=== PATIENT | female | born 1980 | race African-American/Black ===

== ENCOUNTER 2017-01-02 11:24 | Emergency (ER) | payer OTHER ==
[2017-01-02 11:34] VITALS: BP 118/67; PULSE 62; TEMP 98.6; BMI 38.4
[2017-01-02] MEDS ORDERED: IBUPROFEN 600 MG TABLET (FP) PO ONE ×2 (12:25→12:28)
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
== END 2017-01-02 13:14 | disposition home or self-care (01) ==
LOC: JERFT 11:24
PROC: 2W39X1Z Immobilization of Left Upper Extremity using Splint (ICD-10-PCS; principal; 2017-01-02)
DX: S52.125A Nondisplaced fracture of head of left radius, initial encounter for closed fracture (principal); Y04.2XXA Assault by strike against or bumped into by another person, initial encounter; Y93.89 Activity, other specified; Y92.038 Other place in apartment as the place of occurrence of the external cause; Y07.01 Husband, perpetrator of maltreatment and neglect
CPT/HCPCS: 29105; 73070-TC-LT; 99281-25

== ENCOUNTER 2018-11-09 09:47 | Emergency (ER) | payer OTHER ==
[2018-11-09 10:04] VITALS: BP 132/64; PULSE 56; TEMP 97.5; BMI 31.1
[2018-11-09 10:45] LABS: BASO % 0.2 % (0-2.0); EOS % 3.3 % (0-4.5); HEMOGLOBIN 13.6 GM/dL (10.7-15.3); LYMPH % 19.6 % (8-40); MCH 29.2 pg (25.7-33.7); MEAN CELL VOLUME 86.1 fl (80-96); MEAN PLT VOLUME 8.8 fl (7.5-11.1); MONO % 4.8 % (3.8-10.2); NEUT % 72.1 % (42.8-82.8); PLATELET COUNT 242 K/MM3 (134-434); RBC 4.64 M/mm3 (3.60-5.2); RDW 13.3 % (11.6-15.6); WHITE BLOOD COUNT 7.6 K/mm3 (4.0-10.0)
--- NOTE | 2018-11-09 10:57 | PDOC ---
History of Present Illness - General Chief Complaint: Pain Stated Complaint: STOMACH PAIN Time Seen by Provider: 11/09/18 10:21 - History of Present Illness Initial Comments: 11/09/18 11:15 I advised the patient to change from street clothing into a gown. I was then informed by the nurse patient insisted that her IV be removed and she eloped prior to evaluation. Past History - Past Medical History Allergies/Adverse Reactions: Allergies Allergy/AdvReac Type Severity Reaction Status Date / Time No Known Allergies Allergy Verified 11/09/18 10:04 Home Medications: Ambulatory Orders No Home Medications 0 dose .ROUTE UTDICT 01/12/14 Asthma: No Cancer: No Cardiac Disorders: No COPD: No Diabetes: No HTN: No Seizures: No Thyroid Disease: No - Family Disease History Family Disease History: Heart Disease: Father (htn) - Reproductive History (#): 11 Para: 2 Spontaneous : 9 - Immunization History Immunization Up to Date: Yes - Suicide/Smoking/Psychosocial Hx Smoking Status: No Smoking History: Current every day smoker Have you smoked in the past 12 months: Yes Number of Cigarettes Smoked Daily: 6 Information on smoking cessation initiated: Yes 'Breaking Loose' booklet given: 01/02/17 Hx Alcohol Use: No Drug/Substance Use Hx: No Substance Use Type: None Hx Substance Use Treatment: No *Physical Exam - Vital Signs Last Vital Signs Temp Pulse Resp BP Pulse Ox 97.5 F L 56 L 18 132/64 100 11/09/18 10:01 11/09/18 10:01 11/09/18 10:01 11/09/18 10:01 11/09/18 10:01 Moderate Sedation - Procedure Monitoring Vital Signs: Procedure Monitoring Vital Signs Temperature 97.5 F L 11/09/18 10:01 Pulse Rate 56 L 11/09/18 10:01 Respiratory Rate 18 11/09/18 10:01 Blood Pressure 132/64 11/09/18 10:01 O2 Sat by Pulse Oximetry (%) 100 11/09/18 10:01 ED Treatment Course - LABORATORY CBC & Chemistry Diagram: 11/09/18 10:30 11/09/18 10:30 - ADDITIONAL ORDERS Additional order review: 11/09/18 10:30 RBC 4.64 MCV 86.1 MCHC 34.0 RDW 13.3 MPV 8.8 Neutrophils % 72.1 Lymphocytes % 19.6 D Monocytes % 4.8 Eosinophils % 3.3 D Basophils % 0.2 *DC/Admit/Observation/Transfer Diagnosis at time of Disposition: Abdominal pain - Discharge Dispostion Disposition: ELOPED - Referrals Referrals: Akiko Meade [Primary Care Provider] - - Patient Instructions - Post Discharge Activity
[2018-11-09 11:07] LABS: ALK PHOS 80 U/L (45-117); ANION GAP 3 MMOL/L (8-16); BILIRUBIN,TOTAL 0.2 mg/dL (0.2-1); BLOOD UREA NITROGEN 10 mg/dL (7-18); CALCIUM 8.1 mg/dL (8.5-10.1); CHLORIDE 108 mmol/L (98-107); CO2 29 mmol/L (21-32); CREATININE 0.4 mg/dL (0.55-1.3); GLUCOSE,RANDOM 100 mg/dL (74-106); LIPASE 65 U/L (73-393); SGOT/AST 15 U/L (15-37); SGPT/ALT 16 U/L (13-61); SODIUM 140 mmol/L (136-145); TOT PROT 6.1 g/dl (6.4-8.2)
== END 2018-11-09 11:07 | disposition home or self-care (01) ==
LOC: JER 09:47
DX: R10.9 Unspecified abdominal pain (principal)
CPT/HCPCS: 36415; 80053; 83690; 85025; 99282-25

== ENCOUNTER 2019-08-04 14:39 | Emergency (ER) | payer OTHER ==
[2019-08-04 14:48] VITALS: BP 118/78; PULSE 82; TEMP 99; BMI 31.8
[2019-08-04] MEDS ORDERED: IBUPROFEN 600 MG TABLET (FP) PO ONE ×2 (14:48→15:49)
--- NOTE | 2019-08-04 14:48 | PDOC ---
Rapid Medical Evaluation Medical Evaluation: Allergies Allergy/AdvReac Type Severity Reaction Status Date / Time No Known Allergies Allergy Verified 08/04/19 14:44 I have performed a brief in-person evaluation of this patient. The patient presents with a chief complaint of: c/o sore throat x2 days, c/o chills, subjective fever; saw PCP yesterday who gave her shot of Rocephin ( patient states she is unable to take pills because of sensitive stomach) Pertinent physical exam findings: +pharygneal erythema, no significant tonsillar swelling or exudates noted, uvula midline I have ordered the following: rapid strep, motrin The patient will proceed to the ED for further evaluation. 08/04/19 14:44
[2019-08-04] MEDS ORDERED: DEXAMETHASONE LIQUID 0.5 MG/5 ML PO ONE (15:47)
[2019-08-04] MEDS ORDERED: DEXAMETHASONE SOD PHOSPHATE 10 MG/1 ML VIAL ONE (15:49)
--- NOTE | 2019-08-04 16:03 | PDOC ---
History of Present Illness - General Chief Complaint: Sore Throat Stated Complaint: SORE THROAT Time Seen by Provider: 08/04/19 14:44 History Source: Patient Exam Limitations: Clinical Condition - History of Present Illness Initial Comments: 08/04/19 16:33 Patient with no significant past medical history present with complaint of 4- day history of sore throat, painful to swallow, body aches and chills. Patient reports seeing her PCP yesterday who treated her with IM ceftriaxone for sore throat but was not tested. Denies fevers, nausea, vomiting. Denies recent travel or sick contact. Patient has not taken anything for symptoms Is this a multiple visit Asthma Patient?: No Timing/Duration: other (2 days) Past History - Past Medical History Allergies/Adverse Reactions: Allergies Allergy/AdvReac Type Severity Reaction Status Date / Time No Known Allergies Allergy Verified 08/04/19 14:44 Home Medications: Ambulatory Orders No Home Medications 0 dose .ROUTE UTDICT 01/12/14 Methylprednisolone [Medrol Dose Matt] 4 mg PO ASDIR #21 tablet 08/04/19 Oseltamivir Phosphate [Tamiflu -] 75 mg PO BID #10 capsule 08/04/19 Asthma: No Cancer: No Cardiac Disorders: No COPD: No Diabetes: No HTN: No Seizures: No Thyroid Disease: No - Reproductive History (#): 11 Para: 2 Spontaneous : 9 - Immunization History Immunization Up to Date: Yes - Psycho Social/Smoking Cessation Hx Smoking Status: No Smoking History: Current every day smoker Have you smoked in the past 12 months: Yes Number of Cigarettes Smoked Daily: 5 Information on smoking cessation initiated: Yes 'Breaking Loose' booklet given: 01/02/17 Hx Alcohol Use: No Drug/Substance Use Hx: No Substance Use Type: None Hx Substance Use Treatment: No Review of Systems - Review of Systems Able to Perform ROS?: Yes Is the patient limited Chinese proficient: No Constitutional: Yes: Chills, Malaise. No: Fever HEENTM: Yes: Symptoms Reported, See HPI, Nose Congestion, Throat Pain, Difficulty Swallowing. No: Eye Pain, Blurred Vision, Tearing, Recent change in vision, Double Vision, Cataracts, Ear Pain, Ocular Prothesis, Ear Discharge, Nose Pain, Tinnitus, Nose Bleeding, Hearing Loss, Throat Swelling, Mouth Pain, Dental Problems, Mouth Swelling, Other Respiratory: No: Symptoms reported, See HPI, Cough, Orthopnea, Shortness of Breath, SOB with Exertion, SOB at Rest, Stridor, Wheezing, Productive cough, Hemoptysis, Other Cardiac (ROS): No: Symptoms Reported, See HPI, Chest Pain, Edema, Irregular Heart Rate, Lightheadedness, Palpitations, Syncope, Chest Tightness, Other ABD/GI: No: Symptoms Reported, Nausea, Vomiting Musculoskeletal: No: Symptoms Reported Integumentary: No: Symptoms Reported Neurological: No: Symptoms reported All Other Systems: Reviewed and Negative *Physical Exam - Vital Signs Last Vital Signs Temp Pulse Resp BP Pulse Ox 99 F 82 18 118/78 100 08/04/19 14:44 08/04/19 14:44 08/04/19 14:44 08/04/19 14:44 08/04/19 14:44 - Physical Exam Comments: 08/04/19 16:02 GENERAL: Well developed, well nourished. Awake and alert. No acute distress. HEENT: Moderate pharyngeal erythema. Oropharynx patent. .normocephalic, atraumatic. PERRLA, EOMI. No conjunctival pallor. Sclera are non-icteric. Moist mucous membranes. NECK: Supple. Full ROM. CARDIOVASCULAR: Regular rate and rhythm. No murmurs, rubs, or gallops. Distal pulses are 2+ and symmetric. PULMONARY: No evidence of respiratory distress. Lungs clear to auscultation bilaterally. No wheezing, rales or rhonchi. ABDOMINAL: Soft. Non-tender. Non-distended. No rebound or guarding. No organomegaly. Normoactive bowel sounds. MUSCULOSKELETAL Normal range of motion at all joints. SKIN: Warm and dry. Normal capillary refill. No rashes. NEUROLOGICAL: Alert, awake, appropriate. Gait is normal without ataxia. PSYCHIATRIC: Cooperative. Good eye contact. Appropriate mood General Appearance: Yes: Nourished, Appropriately Dressed. No: Apparent Distress ED Treatment Course - Medications Given in the ED: ED Medications Discontinued Medications Generic Name Dose Route Start Last Admin Trade Name Freq PRN Reason Stop Dose Admin Dexamethasone 10 mg 08/04/19 15:47 08/04/19 15:53 Decadron Liquid - PO 08/04/19 15:48 10 mg ONCE ONE Administration Ibuprofen 600 mg 08/04/19 14:48 08/04/19 15:53 Motrin - PO 08/04/19 14:49 600 mg ONCE ONE Administration Medical Decision Making - Medical Decision Making 08/04/19 16:34 Patient with no significant past medical history present with complaint of 4- day history of sore throat, painful to swallow, body aches and chills. Patient reports seeing her PCP yesterday who treated her with IM ceftriaxone for sore throat but was not tested. Denies fevers, nausea, vomiting. Denies recent travel or sick contact. Patient has not taken anything for symptoms Clinical exam unremarkable except moderate pharyngeal erythema. Patient afebrile now. Rapid strep negative and rapid flu negative. Patient symptoms likely viral syndrome. Patient stable for discharge on Tamiflu for viral infection with Medrol Matt for malaise with PCP follow-up. Patient advised to increase fluid intake and take Motrin alternate with Tylenol as needed for Tylenol. Patient stable for discharge Discharge - Discharge Information Problems reviewed: Yes Clinical Impression/Diagnosis: Viral syndrome, Malaise Pharyngitis Qualifiers: Pharyngitis/tonsillitis etiology: unspecified etiology Qualified Code(s): J02.9 - Acute pharyngitis, unspecified Condition: Stable Disposition: HOME - Admission No - Additional Discharge Information Prescriptions: Methylprednisolone [Medrol Dose Matt] 4 mg PO ASDIR #21 tablet Oseltamivir Phosphate [Tamiflu -] 75 mg PO BID #10 capsule - Follow up/Referral Referrals: Richardson Perry [Primary Care Provider] - - Patient Discharge Instructions Patient Printed Discharge Instructions: DI for Viral Syndrome Additional Instructions: Your strep test and flu test was negative. Symptoms likely caused by viral infection. Take prescribed medication as prescribed. Increase fluid intake. Follow-up with primary care as needed - Post Discharge Activity Work/Back to School Note: Back to Work
== END 2019-08-04 16:44 | disposition home or self-care (01) ==
LOC: JERFT 14:39
DX: J02.9 Acute pharyngitis, unspecified (principal); B34.9 Viral infection, unspecified; F17.210 Nicotine dependence, cigarettes, uncomplicated
CPT/HCPCS: 87070; 87804; 87880; 99281-25

== ENCOUNTER 2022-07-02 08:58 | Emergency (ER) | payer OTHER ==
[2022-07-02 09:14] VITALS: BP 97/69; PULSE 96; RESP 18; TEMP 98.9; BMI 37.8
[2022-07-02] MEDS ORDERED: KETOROLAC TROMETHAMINE 30 MG/1 ML VIAL IVPB ONE (09:53)
[2022-07-02] MEDS ORDERED: ONDANSETRON 4 MG/2 ML VIAL IVPUSH ONE (09:53)
[2022-07-02] MEDS ORDERED: SODIUM CHLORIDE 0.9% 500 ML INFUS.BAG IV ONE ×2 (09:53→13:23)
[2022-07-02] MEDS ORDERED: KETOROLAC TROMETHAMINE 30 MG/1 ML VIAL ONE (10:45)
[2022-07-02] MEDS ORDERED: ONDANSETRON 4 MG/2 ML VIAL ONE (10:45)
[2022-07-02 11:24] LABS: BASO % 0.5 % (0-2.0); HEMATOCRIT 45.5 % (32.4-45.2); HEMOGLOBIN 15.2 GM/dL (10.7-15.3); LYMPH % 17.5 % (8-40); MCH 28.5 pg (25.7-33.7); MCHC 33.5 g/dl (32.0-36.0); MEAN CELL VOLUME 85.3 fl (80-96); MONO % 12.7 % (3.8-10.2); NEUT % 69.3 % (42.8-82.8); PLATELET COUNT 145 10^3/uL (134-434); RBC 5.33 M/mm3 (3.60-5.2); RDW 13.9 % (11.6-15.6); WHITE BLOOD COUNT 2.2 K/mm3 (4.0-10.0)
[2022-07-02 11:50] LABS: BILIRUBIN,TOTAL 0.2 mg/dL (0.2-1); TOT PROT 6.7 g/dl (6.4-8.2)
[2022-07-02 12:49] LABS: CREATININE 0.5 mg/dL (0.55-1.3)
[2022-07-02 12:50] LABS: CALCIUM 8.3 mg/dL (8.5-10.1)
[2022-07-02 12:51] LABS: ALBUMIN 3.2 g/dl (3.4-5.0); BLOOD UREA NITROGEN 8.6 mg/dL (7-18)
[2022-07-02 14:03] LABS: EPI CELLS 17 /uL (0-25.1); HYALINE CASTS 1 /uL (0-3.1); URINE APPEARANCE CLEAR; URINE BACTERIA 185 /uL (0-1359); URINE BILIRUBIN NEGATIVE (NEGATIVE); URINE COLOR YELLOW; URINE GLUCOSE (UA) NEGATIVE (NEGATIVE); URINE KETONE 3+ (NEGATIVE); URINE LEUK ESTERASE TRACE (NEGATIVE); URINE NITRITE NEGATIVE (NEGATIVE); URINE PROTEIN TRACE (NEGATIVE); URINE RBC 24 /uL (0-23.9); URINE UROBILINOGEN 0.2 mg/dL (0.2-1.0); URINE WBC 16 /uL (0-25.8)
[2022-07-02 14:04] LABS: HCG,QUALITATIVE URINE Negative
== END 2022-07-02 14:20 | disposition home or self-care (01) ==
LOC: JER 08:58
PROC: 3E0333Z Introduction of Anti-inflammatory into Peripheral Vein, Percutaneous Approach (ICD-10-PCS; principal; 2022-07-02)
PROC: 3E033GC Introduction of Other Therapeutic Substance into Peripheral Vein, Percutaneous Approach (ICD-10-PCS; 2022-07-02)
DX: B34.9 Viral infection, unspecified (principal)
CPT/HCPCS: 0241U-QW; 36415; 71046-TC-FY; 80053; 81003; 84703; 85025; 87086; 87651; 99284-25

== ENCOUNTER 2024-04-25 21:34 | Emergency (ER) | payer OTHER ==
[2024-04-25 21:41] VITALS: BP 118/83; PULSE 74; RESP 20; TEMP 98.4; BMI 43.9
[2024-04-25] MEDS ORDERED: AMOX TR/POT CLAV 875MG/125MG TABLETS (FP) ONE (22:20)
[2024-04-25] MEDS ORDERED: IBUPROFEN 400 MG TABLET (FP) PO ONE ×2 (22:20→22:22)
[2024-04-25] MEDS: IBUPROFEN 400 MG TABLET (FP) PO ONE (22:23)
[2024-04-25] MEDS: AMOX TR/POT CLAV 875MG/125MG TABLETS (FP) PO ONE (22:23)
== END 2024-04-25 22:34 | disposition home or self-care (01) ==
LOC: JERFT 21:34
DX: J01.90 Acute sinusitis, unspecified (principal); J00 Acute nasopharyngitis [common cold]; R09.81 Nasal congestion; R05.9 Cough, unspecified; H92.03 Otalgia, bilateral
CPT/HCPCS: 87651; 99283-25